=== PATIENT | female | born 1990 | race Caucasian/White ===

== ENCOUNTER 2017-05-11 08:56 | Emergency (ER) | payer MEDICAID ==
[~2017-05-11] VITALS: Ht 152.4 cm; Wt 65.9 kg
[2017-05-11 09:00] VITALS: BP 118/74
--- NOTE | 2017-05-11 09:15 | NUR ---
PATIENT PRESENTS TO ED WITH MID BACK TOWARD MID SCAPULA RADIATES TO OCCIPITAL REGION SHARP PAIN X YESTERDAY---DENIES INJURY . PT STATES . DENIES N/V/D; SKIN IS PINK/WARM/DRY; AAOX4 WITH EVEN AND STEADY GAIT; LUNGS CLEAR BL; HR EVEN AND REGULAR; PT DENIES ANY FEVER, CP, SOB, OR COUGH AT THIS TIME; PATIENT STATES PAIN OF 6/10 AT THIS TIME; VSS; PATIENT POSITIONED FOR COMFORT; HOB ELEVATED; BEDRAILS UP X2; BED DOWN. ER MD MADE AWARE OF PT STATUS.
[2017-05-11] MEDS ORDERED: IBUPROFEN 400 MG TAB PO ONE (09:20)
[2017-05-11 09:37] VITALS: BP 118/74
--- NOTE | 2017-05-11 09:38 | NUR ---
Patient discharged with v/s stable. Written and verbal after care instructions given and explained. Patient verbalized understanding. Ambulatory with steady gait. All questions addressed prior to discharge. Advised to follow up with PMD.
== END 2017-05-11 09:38 | disposition home or self-care (01) ==
LOC: MED 08:56
DX: M54.9 Dorsalgia, unspecified (principal)
CPT/HCPCS: 81002; 81025; 99282